=== PATIENT | female | born 1970 | race Caucasian/White ===

== ENCOUNTER → 2018-12-30 | Outpatient (CLI) | payer OTHER ==
[~2018-12-30] MED LIST: REGADENOSON 0.4 MG/5 ML DISP.SYRIN. IV ONE
--- NOTE | 2018-12-30 09:36 | PCVCIMAG ---
APPROVED REPORT Study performed: 12/30/2018 08:33:29 EXAM: Comprehensive 2D, Doppler, and color-flow Echocardiogram Patient Location: Echo lab Status: routine BSA: 2.04 HR: 72 bpmBP: 134/80 mmHg Rhythm: NSR Other Information Study Quality: Adequate Risk Factors: Cardiac Risk Factors: Hyperlipidemia Indications Dyspnea Chest Pain 2D Dimensions IVSd: 9.16 (7-11mm) LVDd: 49.96 mm PWd: 8.70 (7-11mm)Ascending Ao: 32.29 (22-36mm) LVDs: 38.06 (25-40mm) Left Atrium: 36.32 (27-40mm) Aortic Root: 30.60 mm LV Single Plane 4CH: 57.25 % LV Single Plane 2CH: 54.50 % Biplane EF: 55.0 % Volumes Left Atrial Volume (Systole) Single Plane 4CH: 79.11 mLSingle Plane 2CH: 73.97 mL LA ESV Index: 40.00 mL/m2 Aortic Valve AoV Peak Chintan.: 1.34 m/s AO Peak Gr.: 7.19 mmHgLVOT Max P.76 mmHg LVOT Max V: 0.97 m/s Mitral Valve E/A Ratio: 1.6 MV Decel. Time: 182.66 ms MV E Max Chintan.: 0.63 m/s MV A Chintan.: 0.40 m/s IVRT: 103.81 ms Pulmonary Valve PV Peak Chintan.: 0.88 m/sPV Peak Gr.: 3.07 mmHg Pulmonary Vein P Vein S: 0.25 m/sP Vein A: 0.34 m/s P Vein D: 0.31 m/sP Vein A Dur.: 107.3 msec P Vein S/D Ratio: 0.81 Tricuspid Valve TR Peak Chintan.: 2.50 m/s TR Peak Gr.: 25.10 mmHg TV Vmax: 0.53 m/s Left Ventricle The left ventricle is normal size. There is normal LV segmental wall motion. There is normal left ventricular wall thickness. Left ventricular systolic function is normal. The left ventricular ejection fraction is within the normal range. LVEF is 55%. Grade II - pseudonormal filling dynamics. Right Ventricle The right ventricle is normal size. The right ventricular systolic function is normal. Atria Left atrium is mildly dilated. The right atrium size is normal. Aortic Valve The aortic valve is normal in structure. No aortic regurgitation is present. There is no aortic valvular stenosis. Mitral Valve The mitral valve is normal in structure. Mild mitral regurgitation. No evidence of mitral valve stenosis. Tricuspid Valve The tricuspid valve is normal in structure. Mild tricuspid regurgitation with PAP of 35 mmHg. Pulmonic Valve The pulmonary valve is normal in structure. There is no pulmonic valvular regurgitation. Great Vessels The aortic root is normal in size. IVC is normal in size and collapses >50% with inspiration. Pericardium There is no pericardial effusion. There is no pleural effusion. <Conclusion> The left ventricle is normal size. LVEF is 55%. Left atrium is mildly dilated. The aortic valve is normal in structure. The mitral valve is normal in structure. Mild mitral regurgitation. The tricuspid valve is normal in structure. Mild tricuspid regurgitation with PAP of 35 mmHg. The pulmonary valve is normal in structure. There is no pericardial effusion.
--- NOTE | 2018-12-30 12:34 | PCVCIMAG ---
APPROVED REPORT Imaging Protocol: Rest Tc-99m/Stress Tc-99m 1 day Study performed: 12/30/2018 09:46:13 Indication: Chest pain, Dyspnea on Exertion Patient Location: Out-Patient Stress Nurse: Cleopatra Wynn RN, Aurora Rios RN ND Tech:Abhishek Rainey NMTCB Ht: 5 ft 9 in Wt: 195 lbs BSA: 2.04 m2 HR: 97 bpm BP: 134/85 mmHg BMI: 28.7 Rhythm: Sinus Rhythm, Nonspecific T wave abnormality Medical History Medical History: Hyperlipidemia, Family Hx of CAD Medications: Keppra Allergies: No known drug allergies Exercise History: Indeterminate Physical Disabilities: Back, Feet Resting Data Rest SPECT myocardial perfusion imaging was performed in supine position 45 minutes following the intravenous injection of 10.5 mCi of Tc-99m Sestamibi. Time of rest injection: 0930 Date: 12/30/2018 Administration Route: IV Administration Site: Right AC Pharmacologic Stress Pharmacologic stress test was performed by injecting Regadenoson 0.4 mg IV push over 10-15 seconds immediately followed by the intravenous injection of 33.6 mCi of Tc-99m Sestamibi. Time of stress injection: 1100 Date: 12/30/2018 Administration Route: IV Administration Site: Right AC Gated Stress SPECT was performed 45 minutes after stress injection. The images were gated to evaluate regional wall motion and calculate left ventricular ejection fraction. Stress Test Details Stress Test: Pharmacologic stress testing performed using 0.4 mg of regadenoson per 5 mL given IV over 10 seconds. Reason for pharmacologic stress test: Back issues. HRMax Heart Rate (APMHR): 172 bpm Resting HR: 97 bpmTarget HR (85% APMHR): 146 bpm Max HR Achieved: 130 bpm % of APMHR: 75 Recovery HR: 87 bpm BP Resting BP: 134/85 mmHg Max BP: 149/73 mmHg Recovery BP: 139/75 mmHg ECG Resting ECG: Sinus Rhythm,Sinus Rhythm, nonspecific ST abnormalities Stress ECG: Sinus Tachycardia, Sinus Rhythm, nonspecific ST abnormalities Arrhythmia: None Recovery ECG: Sinus Tachycardia, Sinus Rhythm, nonspecific ST abnormalities Clinical Reason for Termination: Completed protocol Stress Symptoms: Dyspnea, Leg fatigue, Leg heaviness, Chest pain 5/10 Symptoms resolved with caffeine. Stress ECG Conclusion 1. adequate response to iv lexiscan 2. inadequate heart rate for ecg diagnosis Study Data Post stress, the left ventricular ejection was 70%.. SSS: 5 SRS: 4 SDS: 2 TID = 0.98. Perfusion There is a medium area of moderately reduced uptake in the mid and apical segment of the anterior wall which is seen on the stress images as well as the resting images. This area thickens and moves normally and is most consistent with attenuation artifact. Wall Motion Normal left ventricular wall motion. Nuclear Conclusion ECG Findings: non-diagnostic Clinical Findings: negative for ischemia Nuclear Findings: negative for ischemia Exercise Capacity: not assessed Left Ventricular Function: normal 1. low risk study 2. post exercise lvef 70% without wall motion abnormalities Interpreted by: Laura Child MD Electronically Approved: 12/30/2018 12:34:06 <Conclusion> 1. adequate response to iv lexiscan 2. inadequate heart rate for ecg diagnosis
== END | disposition home or self-care (01) ==
LOC: PCVCIMAG 08:47
PROVIDERS: ATTEND Internal Medicine
DX: I08.1 Rheumatic disorders of both mitral and tricuspid valves (principal); E78.5 Hyperlipidemia, unspecified; Z79.899 Other long term (current) drug therapy; Z87.891 Personal history of nicotine dependence; Z72.89 Other problems related to lifestyle
CPT/HCPCS: 78452; 93017; 93306; A9500; J2785